=== PATIENT | male | born 1960 | race Two or more races ===

== ENCOUNTER 2018-09-20 10:56 | Emergency (ER) | payer MEDICAID ==
[~2018-09-20] VITALS: Ht 160 cm; Wt 73.5 kg
--- NOTE | 2018-09-20 11:10 | NUR ---
pt brought in from home with c/c of abdominal discomfort for a few days previosly with diarhea nausea. pt alert with orientation x 4 able to walk and undress self.
[2018-09-20] MEDS ORDERED: IV NS 0.9% 1,000 ML BAG IV ONE (11:30)
[2018-09-20 11:41] LABS: BASOPHILS % (AUTO) 0.5 % (0.0-2.0); EOSINOPHILS % (AUTO) 1.5 % (0.0-6.0); HEMATOCRIT 47 % (39-51); HEMOGLOBIN 16.4 g/dL (13.5-17.5); LYMPHOCYTES # (AUTO) 1.2 /CMM (0.8-4.8); LYMPHOCYTES % (AUTO) 15.9 % (20.0-44.0); MEAN CORPUSCULAR HGB CONC 35 g/dl (31.0-36.0); MEAN CORPUSCULAR VOLUME 95 fL (80-96); MONOCYTES # (AUTO) 0.4 /CMM (0.1-1.30); MONOCYTES % (AUTO) 5.5 % (2.0-12.0); NEUTROPHILS # (AUTO) 5.9 /CMM (1.8-8.9); NEUTROPHILS % (AUTO) 76.6 % (43.0-81.0); PLATELET COUNT (AUTO) 285 /CMM (150-450); RED BLOOD CELL COUNT(AUTO) 4.93 MIL/uL (4.5-6.0); WHITE BLOOD COUNT (AUTO) 7.7 K/uL (4.3-11.0)
[2018-09-20 11:46] LABS: CALCIUM, SERUM 9.1 mg/dL (8.5-10.1); POTASSIUM 4.4 mmol/L (3.5-5.1)
[2018-09-20 11:46] LABS: APPEARANCE,URINE Clear (CLEAR); BILIRUBIN,URINE Negative (NEGATIVE); BLOOD, URINE Negative Ery/uL (NEGATIVE); COLOR,URINE Yellow (YELLOW); KETONES,URINE Negative (NEGATIVE); LEUKOCYTE ESTERASE ,URINE Negative (NEGATIVE); NITRITE, URINE Negative (NEGATIVE); PROTEIN,URINE Negative (NEGATIVE); UGLUCOSE 500 MG/DL mg/dL (NEGATIVE); UROBILINOGEN,URINE 0.2 EU/dL (0.2)
--- NOTE | 2018-09-20 11:46 | NUR ---
urine obtained and sent to lab pt sent to ct scann
[2018-09-20 11:51] LABS: ALBUMIN 4.3 g/dL (3.4-5.0); BILIRUBIN,DIRECT 0.1 mg/dL (0.0-0.2); BILIRUBIN,TOTAL 0.4 mg/dL (0.2-1.0); TOTAL PROTEIN, SERUM 8.6 g/dL (6.4-8.2)
--- NOTE | 2018-09-20 12:09 | NUR ---
pt unable to give urine dispite given 500 ml water pt refused cath i/o
[2018-09-20 13:32] VITALS: BP 152/90
--- NOTE | 2018-09-20 13:33 | NUR ---
pt discharged to home will follow up with pmd piv removed with tip intact
== END 2018-09-20 13:34 | disposition home or self-care (01) ==
LOC: ER 10:57
DX: R10.32 Left lower quadrant pain (principal); R19.7 Diarrhea, unspecified; I10 Essential (primary) hypertension; E11.9 Type 2 diabetes mellitus without complications; E78.5 Hyperlipidemia, unspecified; E78.00 Pure hypercholesterolemia, unspecified
CPT/HCPCS: 36415; 74176; 80048; 80076; 81001; 83690; 85025; 99284; A4606; J7030; 81000-TC

== ENCOUNTER 2021-12-17 13:10 | Emergency (ER) | payer BC, OTHER ==
[~2021-12-17] VITALS: Ht 165.1 cm; Wt 72.6 kg
[2021-12-17] MEDS ORDERED: ONDANSETRON HCL/PF 4 MG/2 ML VIAL ONE (14:50)
[2021-12-17] MEDS ORDERED: MAG HYDROX/AL HYDROX/SIMETH 30 ML UDC ONE (14:50)
[2021-12-17] MEDS ORDERED: FAMOTIDINE/PF INJ 20 MG/2 ML VIAL IV ONE ×2 (14:51→15:00)
[2021-12-17] MEDS ORDERED: MAG HYDROX/AL HYDROX/SIMETH 30 ML UDC PO ONE (15:00)
[2021-12-17] MEDS ORDERED: ONDANSETRON HCL/PF 4 MG/2 ML VIAL IVP ONE (15:00)
[2021-12-17 15:07] LABS: BILIRUBIN,URINE NEGATIVE (NEGATIVE); COLOR,URINE YELLOW (YELLOW); LEUKOCYTE ESTERASE ,URINE NEGATIVE (NEGATIVE); NITRITE, URINE NEGATIVE (NEGATIVE); PROTEIN,URINE NEGATIVE (NEGATIVE); UGLUCOSE NEGATIVE (NEGATIVE); UROBILINOGEN,URINE 0.2 EU/dL (0.2)
[2021-12-17 15:17] LABS: BASOPHILS % (AUTO) 0.4 % (0.0-2.0); EOSINOPHILS % (AUTO) 1.7 % (0.0-6.0); HEMATOCRIT 40 % (39-51); HEMOGLOBIN 14.1 g/dL (13.5-17.5); LYMPHOCYTES # (AUTO) 1.8 K/uL (0.8-4.8); LYMPHOCYTES % (AUTO) 29.7 % (20.0-44.0); MEAN CORPUSCULAR HGB CONC 35 g/dl (31.0-36.0); MEAN CORPUSCULAR VOLUME 92 fL (80-96); MONOCYTES # (AUTO) 0.4 K/uL (0.1-1.30); MONOCYTES % (AUTO) 6.4 % (2.0-12.0); NEUTROPHILS # (AUTO) 3.7 K/uL (1.8-8.9); NEUTROPHILS % (AUTO) 61.8 % (43.0-81.0); PLATELET COUNT (AUTO) 268 K/uL (150-450); RED BLOOD CELL COUNT(AUTO) 4.33 MIL/uL (4.5-6.0)
--- NOTE | 2021-12-17 15:30 | NUR ---
Dozing. No obvious distress NO acute changes
[2021-12-17 16:07] LABS: ALANINE AMINOTRANSFERASE 25 U/L (12-78); ALBUMIN 4.3 g/dL (3.4-5.0); ALKALINE PHOSPHATASE 58 U/L (46-116); ASPARTATE AMINOTRANSFERASE 16 U/L (15-37); BILIRUBIN,DIRECT 0.1 mg/dL (0.0-0.2); BILIRUBIN,TOTAL 0.3 mg/dL (0.2-1.0); CALCIUM, SERUM 8.9 mg/dL (8.5-10.1); CARBON DIOXIDE 22 mmol/L (21-32); CHLORIDE 100 mmol/L (98-107); CREATININE 1.1 mg/dL (0.6-1.3); GLUCOSE 150 mg/dL (74-106); LIPASE 685 U/L (73-393); POTASSIUM 4.7 mmol/L (3.5-5.1); SODIUM SERUM 134 mmol/L (136-145); TOTAL PROTEIN, SERUM 8.3 g/dL (6.4-8.2); UREA NITROGEN, BLOOD 16 mg/dL (7-18)
[2021-12-17] MEDS ORDERED: OMEP40CA21 PO (16:36)
[2021-12-17] MEDS ORDERED: ONDA4TAB5 PO (16:36)
[2021-12-17 16:54] VITALS: BP 132/72
== END 2021-12-17 16:55 | disposition home or self-care (01) ==
LOC: ER 13:41
DX: K85.90 Acute pancreatitis without necrosis or infection, unspecified (principal); I10 Essential (primary) hypertension; E11.9 Type 2 diabetes mellitus without complications; E78.00 Pure hypercholesterolemia, unspecified; Z87.19 Personal history of other diseases of the digestive system; Z79.899 Other long term (current) drug therapy
CPT/HCPCS: 36415; 80048; 80076; 81003; 83690; 84484; 85025; 93005; 96374; 96375; 99284; J2405; J3490

== ENCOUNTER 2024-01-02 12:51 | Emergency (ER) | payer BC, MEDICAID ==
[~2024-01-02] VITALS: Ht 157.5 cm; Wt 72.6 kg
[~2024-01-02 12:51] MED LIST: OMEP40CA21 PO; ONDA4TAB5 PO
[2024-01-02] MEDS ORDERED: ONDANSETRON HCL/PF 4 MG/2 ML VIAL ONE (13:15)
[2024-01-02] MEDS: IV NS 0.9% 1,000 ML BAG IV ONE (13:22)
[2024-01-02] MEDS: ONDANSETRON HCL/PF 4 MG/2 ML VIAL IVP ONE (13:24)
[2024-01-02 13:46] LABS: BASOPHILS % (AUTO) 0.3 % (0.0-2.0); EOSINOPHILS # (AUTO) 0.1 K/uL (0.0-0.7); EOSINOPHILS % (AUTO) 1.3 % (0.0-6.0); HEMATOCRIT 41 % (39-51); HEMOGLOBIN 14.2 g/dL (13.5-17.5); LYMPHOCYTES # (AUTO) 1.2 K/uL (0.8-4.8); LYMPHOCYTES % (AUTO) 20.7 % (20.0-44.0); MEAN CORPUSCULAR HEMOGLOBIN 33 PG (26.0-33.0); MEAN CORPUSCULAR HGB CONC 34 g/dl (31.0-36.0); MEAN CORPUSCULAR VOLUME 97 fL (80-96); MONOCYTES # (AUTO) 0.5 K/uL (0.1-1.30); MONOCYTES % (AUTO) 8.3 % (2.0-12.0); NEUTROPHILS # (AUTO) 4.1 K/uL (1.8-8.9); NEUTROPHILS % (AUTO) 69.4 % (43.0-81.0); PLATELET COUNT (AUTO) 223 K/uL (150-450); RED BLOOD CELL COUNT(AUTO) 4.27 MIL/uL (4.5-6.0); RED CELL DISTRIBUTION WIDTH 13.4 % (11.5-15.0)
[2024-01-02 13:59] LABS: ALBUMIN 3.2 g/dL (3.4-5.0); BILIRUBIN,DIRECT 0.1 mg/dL (0.0-0.2); BILIRUBIN,TOTAL 0.4 mg/dL (0.2-1.0); POTASSIUM 4.2 mmol/L (3.5-5.1); TOTAL PROTEIN, SERUM 7.1 g/dL (6.4-8.2)
[2024-01-02] MEDS ORDERED: ONDA4TAB5 PO (15:35)
[2024-01-02] MEDS ORDERED: OMEP40CA21 PO (15:35)
[2024-01-02] MEDS ORDERED: FAMOTIDINE/PF INJ 20 MG/2 ML VIAL IV ONE (15:53)
[2024-01-02] MEDS ORDERED: LIDOCAINE VISCOUS 2% UD 15 ML UDC ONE (15:53)
[2024-01-02] MEDS ORDERED: MAG HYDROX/AL HYDROX/SIMETH 30 ML UDC ONE (15:53)
[2024-01-02] MEDS: FAMOTIDINE/PF INJ 20 MG/2 ML VIAL IV ONE (15:54)
[2024-01-02] MEDS: LIDOCAINE VISCOUS 2% UD 15 ML UDC MM ONE (15:54)
[2024-01-02] MEDS: MAG HYDROX/AL HYDROX/SIMETH 30 ML UDC PO ONE (15:55)
[2024-01-02 16:00] LABS: APPEARANCE,URINE CLEAR (CLEAR); BILIRUBIN,URINE NEGATIVE (NEGATIVE); BLOOD, URINE NEGATIVE Ery/uL (NEGATIVE); COLOR,URINE YELLOW (YELLOW); KETONES,URINE NEGATIVE (NEGATIVE); LEUKOCYTE ESTERASE ,URINE NEGATIVE (NEGATIVE); NITRITE, URINE NEGATIVE (NEGATIVE); PH,URINE 5.5 (5.0-8.0); PROTEIN,URINE NEGATIVE (NEGATIVE); UGLUCOSE 2+ mg/dL (NEGATIVE); UROBILINOGEN,URINE 0.2 EU/dL (0.2)
[2024-01-02 16:29] VITALS: BP 141/79; TEMP 98.2; O2SAT 98
== END 2024-01-02 16:30 | disposition home or self-care (01) ==
LOC: ER 13:17
DX: K29.20 Alcoholic gastritis without bleeding (principal); K70.9 Alcoholic liver disease, unspecified; K85.90 Acute pancreatitis without necrosis or infection, unspecified; F10.129 Alcohol abuse with intoxication, unspecified; K27.9 Peptic ulcer, site unspecified, unspecified as acute or chronic, without hemorrhage or perforation; R74.8 Abnormal levels of other serum enzymes; E87.1 Hypo-osmolality and hyponatremia; I10 Essential (primary) hypertension; E78.5 Hyperlipidemia, unspecified; E11.9 Type 2 diabetes mellitus without complications; Y90.6 Blood alcohol level of 120-199 mg/100 ml
CPT/HCPCS: 99285; 96374; 96361; 96375; 93005; 71045; 76705; 85025; 80048; 83690; 80076; 81003; 36415; 84484; 80320; J3490; J2405; J7030; G0480

== ENCOUNTER 2024-02-06 13:03 | Emergency (ER) | payer BC, MEDICAID ==
[~2024-02-06] VITALS: Ht 167.6 cm; Wt 77.6 kg
[2024-02-06] MEDS ORDERED: ONDANSETRON HCL/PF 4 MG/2 ML VIAL ONE ×2 (13:25→15:23)
[2024-02-06 13:49] LABS: BASOPHILS % (AUTO) 0.5 % (0.0-2.0); EOSINOPHILS # (AUTO) 0.1 K/uL (0.0-0.7); EOSINOPHILS % (AUTO) 1.6 % (0.0-6.0); HEMATOCRIT 43 % (39-51); HEMOGLOBIN 14.7 g/dL (13.5-17.5); LYMPHOCYTES # (AUTO) 1.6 K/uL (0.8-4.8); MEAN CORPUSCULAR HEMOGLOBIN 34 PG (26.0-33.0); MEAN CORPUSCULAR HGB CONC 34 g/dl (31.0-36.0); MEAN CORPUSCULAR VOLUME 98 fL (80-96); MONOCYTES # (AUTO) 0.6 K/uL (0.1-1.30); MONOCYTES % (AUTO) 8.6 % (2.0-12.0); NEUTROPHILS # (AUTO) 4.2 K/uL (1.8-8.9); NEUTROPHILS % (AUTO) 64.3 % (43.0-81.0); PLATELET COUNT (AUTO) 209 K/uL (150-450); RED BLOOD CELL COUNT(AUTO) 4.38 MIL/uL (4.5-6.0); RED CELL DISTRIBUTION WIDTH 13.6 % (11.5-15.0); WHITE BLOOD COUNT (AUTO) 6.6 K/uL (4.3-11.0)
[2024-02-06] MEDS ORDERED: FAMOTIDINE/PF INJ 20 MG/2 ML VIAL IV ONE (13:49)
[2024-02-06] MEDS ORDERED: MAG HYDROX/AL HYDROX/SIMETH 30 ML UDC ONE (13:49)
[2024-02-06] MEDS ORDERED: LIDOCAINE VISCOUS 2% UD 15 ML UDC ONE (13:49)
[2024-02-06] MEDS: ONDANSETRON HCL/PF 4 MG/2 ML VIAL IVP ONE (13:50)
[2024-02-06] MEDS: IV NS 0.9% 1,000 ML BAG IV ONE (13:50)
[2024-02-06] MEDS: FAMOTIDINE/PF INJ 20 MG/2 ML VIAL IV ONE (13:52)
[2024-02-06] MEDS: MAG HYDROX/AL HYDROX/SIMETH 30 ML UDC PO ONE (13:53)
[2024-02-06] MEDS: LIDOCAINE VISCOUS 2% UD 15 ML UDC MM ONE (13:53)
[2024-02-06 13:58] LABS: CALCIUM, SERUM 8.5 mg/dL (8.5-10.1); CREATININE 0.9 mg/dL (0.6-1.3); POTASSIUM 4.5 mmol/L (3.5-5.1)
[2024-02-06 14:03] LABS: ALBUMIN 3.6 g/dL (3.4-5.0); BILIRUBIN,DIRECT 0.1 mg/dL (0.0-0.2); BILIRUBIN,TOTAL 0.4 mg/dL (0.2-1.0); TOTAL PROTEIN, SERUM 7.7 g/dL (6.4-8.2)
[2024-02-06 14:34] LABS: APPEARANCE,URINE Clear (CLEAR); BILIRUBIN,URINE Negative (NEGATIVE); BLOOD, URINE Negative Ery/uL (NEGATIVE); COLOR,URINE YELLOW (YELLOW); KETONES,URINE Negative (NEGATIVE); LEUKOCYTE ESTERASE ,URINE Negative (NEGATIVE); NITRITE, URINE Negative (NEGATIVE); PH,URINE 5.5 (5.0-8.0); PROTEIN,URINE Negative (NEGATIVE); UGLUCOSE 500 MG/DL mg/dL (NEGATIVE); UROBILINOGEN,URINE 0.2 EU/dL (0.2)
[2024-02-06] MEDS: IV NS 0.9% 500 ML BAG IV ONE (15:16)
[2024-02-06] MEDS: ONDANSETRON HCL/PF 4 MG/2 ML VIAL IV ONE (15:24)
[2024-02-06] MEDS ORDERED: OMEP40CA21 PO (16:32)
[2024-02-06] MEDS ORDERED: ONDA4TAB5 PO (16:32)
[2024-02-06 16:46] VITALS: BP 118/77; TEMP 98.7; O2SAT 100
== END 2024-02-06 16:46 | disposition home or self-care (01) ==
LOC: ER 13:09
DX: K29.20 Alcoholic gastritis without bleeding (principal); F10.10 Alcohol abuse, uncomplicated; I10 Essential (primary) hypertension; E78.5 Hyperlipidemia, unspecified; E11.9 Type 2 diabetes mellitus without complications; E78.00 Pure hypercholesterolemia, unspecified; R11.2 Nausea with vomiting, unspecified; Y90.9 Presence of alcohol in blood, level not specified
CPT/HCPCS: 99284; 96374; 96361; 96375; 96376; 85025; 80048; 83690; 80076; 81003; 36415; J3490; J2405 ×2; J7030